=== PATIENT | male | born 1970 | race Two or more races ===

== ENCOUNTER 2025-02-09 06:50 | Day surgery (SDC) | payer BC, OTHER ==
[2025-02-09] VITALS (8 sets, daily range): BP systolic 117–126; BP diastolic 86–94; PULSE 73–80; RESP 12–18; O2SAT 91–95
[~2025-02-09] VITALS: Ht 177.8 cm; Wt 83.9 kg
[~2025-02-09 06:50] MED LIST: ASPI-543 PO; ATOR40TA52 PO; CLOP75TA70 PO; DULO60CA41 PO; ISOS20TA5 PO; LOSA-533 PO; METO25TA5 PO; PANT40T PO
[2025-02-09] MEDS ORDERED: IODIXANOL 320MG/ML 100ML BTL IV ONE (07:15)
[2025-02-09] MEDS ORDERED: HEPARIN IN NS 1000Units/500mL 1,500 ML ONE (07:15)
[2025-02-09] MEDS ORDERED: ANGIOMAX 250 MG VIAL IV ONE (08:35)
[2025-02-09] MEDS ORDERED: HEPARIN SODIUM (PORCINE) 5000 UNITS/ML 1ML VIAL ONE (08:35)
[2025-02-09] MEDS ORDERED: VERAPAMIL 2.5MG/ML INJ 2ML VIAL IV ONE (08:36)
[2025-02-09] MEDS ORDERED: LIDOCAINE 2%HCL (LOCAL ANESTH.) INJ 20ML MDV ONE (08:36)
[2025-02-09] MEDS ORDERED: fentaNYL CITRATE 100 MCG/2 ML VL ONE (08:36)
[2025-02-09] MEDS ORDERED: MIDAZOLAM HCL 2MG/2ML 2ml VIAL (1mg/ml) ONE (08:36)
[2025-02-09] MEDS ORDERED: SODIUM CHL 0.9% 0 ML ONE (08:36)
--- NOTE | 2025-02-09 10:00 | DVHOP2 ---
Operative Report Operative Report CARDIAC SPECIAL EVENTS COORDINATOR PROCEDURE REPORT [place], [place] Date of Service: 02/09/25 Technology Trainer: Evelyn Quiroz MD PROCEDURES PERFORMED: Coronary angiogram, left heart catheterization, conscious sedation administration and supervision, less than 15 minutes; fluoroscopy use and interpretation. PREOPERATIVE DIAGNOSES: Abnormal stress test with CCS class 3 angina, POSTOP DIAGNOSIS: DESCRIPTION OF PROCEDURE: The patient or appropriate family signed informed consent understanding the risks, benefits and alternatives of the procedure, they wished to proceed. The patient was brought to the cardiac clinical laboratory director in n.p.o. state. The patient was prepped in a sterile fashion. Sedation was used per cardiac cath protocol. I administered 2 mL of 2% lidocaine to the right wrist. With an antegrade front wall puncture. I cannulated the right radial artery and placed a 6-Finnish Glidesheath slender. Next, an intra-arterial spasmolytic was administered. Next, a - 6French Luke catheter and XXXXX guide and were used for coronary angiogram and LVEDP measurement and pressure pullback. At the completion of procedure, all guides and wires were removed, and there were no immediate complications. FINDINGS: RCA: Moderate vessel off the right sinus of Valsalva, there is a 99% mid RCA lesion that is torrtuous. this appears to be a recanalized previous stemi . therei s ricardo 3 distal flow. LEFT MAIN: Moderate size left main, itribifurcates into LAD and circumflex. and RAMUS. it is patent and no severe stenosis CIRCUMFLEX: Moderate caliber vessel coming off the left main . high take off OM1 is patent. OM2 has a 70% ostial stenosis. moderate vessl. distal CX is large and free of severe plaque. RAMUS - tortuous vessel, patent LAD: LAD is a moderate caliber vessel coming of the left main. prox LAD is patent. mid LAD has sequential 70% and 85% stenosis that is tortuous. distal to apical LAD is patent with good target. LVEDP of 12 mmhg CONCLUSIONS: 1. severe mutlivessel cad PLAN: Aggressive risk factor modification and medical management for the patient. cabg eval dc plavix CT surgeon aware and will make appt EVELYN QUIROZ MD Feb 09, 2025 10:00
--- NOTE | 2025-02-09 11:27 | ECG ---
[facility] Test Date: 2025-02-09 Test Time: 07:32:01 Pat Name: LORI DANIELS Department: Room: Gender: M Ad Clerk: MARYCHUY : 1970 Requested By: EVELYN QUIROZ Order Number: [id number] Reading MD: Anton Morton Measurements Intervals [place] Rate: 76 P: 37 VT: 144 QRS: -37 QRSD: 116 T: -33 QT: 376 QTc: 423 Interpretive Statements Normal sinus rhythm Left axis deviation Left ventricular hypertrophy with QRS widening Inferior infarct , age undetermined Electronically Signed On 02-11-2025 20:33:35 PDT by Anton Morton Please click the below link to view image of tracing.
== END 2025-02-09 11:36 | disposition home or self-care (01) ==
LOC: CATH 06:50
PROVIDERS: ATTEND Internal Medicine
DX: I25.118 Atherosclerotic heart disease of native coronary artery with other forms of angina pectoris (principal); R94.39 Abnormal result of other cardiovascular function study; F17.210 Nicotine dependence, cigarettes, uncomplicated; Z79.82 Long term (current) use of aspirin; Z79.899 Other long term (current) drug therapy
CPT/HCPCS: 93005; 93458; C1894; J1644; J2250; J3010; J7030; Q9967; 99152